=== PATIENT | male | born 1975 | race Caucasian/White ===

== ENCOUNTER 2021-09-07 06:39 | Outpatient (CLI) | payer BC, SELFPAY ==
--- NOTE | ~2021-09-07 | MR_ITS ---
EXAMINATION: MR brain/brain stem wo/w con DATE: 09/07/2021 07:44 INDICATION: Right-sided tinnitus. Right-sided hearing loss. TECHNIQUE: Magnetic resonance imaging (MRI) of the brain and brainstem was performed without and with 17 mL MultiHance intravenous contrast. COMPARISON: None. FINDINGS: There are scattered areas of nonspecific increased T2-weighted signal intensity in the cere bral white matter, which is within normal limits for the patient's age. There is no intracranial hemo rrhage, acute infarction, or abnormal intracranial mass lesion. The ventricles are normal in size. Th e internal auditory canals and inner and middle ears are normal. The mastoid air cells are normal. Th e orbits are normal. The paranasal sinuses are clear. IMPRESSION: 1. Normal aging brain. Reviewed, dictated and finalized at location A. IMPRESSION: 1. Normal aging brain.
[2021-09-07 07:07] LABS: Estimated Glomerular Filt Rate > 60
== END 2021-09-07 06:40 | disposition home or self-care (01) ==
LOC: ANHIMG 06:47
PROVIDERS: PCP Internal Medicine
DX: H93.11 Tinnitus, right ear (principal)
CPT/HCPCS: 70553; A9577

== ENCOUNTER 2024-04-10 11:59 | Outpatient (CLI) | payer OTHER, SELFPAY ==
--- NOTE | ~2024-04-10 | XR_ITS ---
EXAMINATION: XR finger 2nd LT min 2V DATE: 04/10/2024 12:19 INDICATION: Left hand second digit pain. TECHNIQUE: 4 views of left hand second digit were obtained. COMPARISON: None. FINDINGS: Alignment is normal. No fracture. Joint spaces are normal. IMPRESSION: 1. No fracture. Reviewed, dictated and finalized at location A. DATA ADMIN IMPRESSION: 1. No fracture.
== END 2024-04-10 12:00 | disposition home or self-care (01) ==
LOC: MICIMG 12:04
PROVIDERS: PCP Internal Medicine; Visit Provider Internal Medicine
DX: M79.645 Pain in left finger(s) (principal)
CPT/HCPCS: 73140